=== PATIENT | female | born 1990 | race Hispanic/Latino ===

== ENCOUNTER 2017-03-25 12:01 | Emergency (ER) | payer OTHER ==
[2017-03-25 12:09] VITALS: BMI 28.3
[2017-03-25] MEDS ORDERED: Sodium Chloride 0.9% 1,000 ML IV STA (12:16)
--- NOTE | 2017-03-25 12:21 | ED PDOC ---
Syncope/Near Syncope/Dizziness Time Seen by Provider: 03/25/17 12:10 Chief Complaint (Nursing): Syncope Chief Complaint (Provider): Syncope History Per: Patient History/Exam Limitations: no limitations Onset/Duration Of Symptoms: Mins ([employer]) Additional History Per: EMS Additional Complaint(s): Tessie is a 26 y/o female with no past medical history who was brought to the ED by EMS from an urgent care center after experiencing a syncopal episode. Patient has had fever, congestion, and malaise for the past week, and states that she tested positive for flu A at the urgent care center. She denies vomiting or diarrhea. PMD: None Past Medical History Reviewed: Historical Data, Nursing Documentation, Vital Signs Vital Signs: Last Vital Signs Temp 100.3 F H 03/25/17 12:08 Pulse 88 03/25/17 12:08 Resp BP 120/72 03/25/17 12:08 Pulse Ox 98 03/25/17 12:08 - Medical History PMH: No Chronic Diseases - Family History Family History: States: Unknown Family Hx - Home Medications Home Medications: Ambulatory Orders Medication Instructions Recorded Oseltamivir [Tamiflu] 75 mg PO BID #10 cap 03/25/17 - Allergies Allergies/Adverse Reactions: Allergies Allergy/AdvReac Type Severity Reaction Status Date / Time No Known Allergies Allergy Verified 03/25/17 12:12 Review of Systems ROS Statement: Except As Marked, All Systems Reviewed And Found Negative Constitutional: Positive for: Fever, Malaise, Other (syncope) ENT: Positive for: Nose Congestion Gastrointestinal: Negative for: Vomiting, Diarrhea Physical Exam - Reviewed Nursing Documentation Reviewed: Yes Vital Signs Reviewed: Yes - Physical Exam Appears: Positive for: Non-toxic, No Acute Distress Cardiovascular/Chest: Positive for: Regular Rate, Rhythm. Negative for: Murmur Respiratory: Positive for: Normal Breath Sounds. Negative for: Respiratory Distress Gastrointestinal/Abdominal: Positive for: Normal Exam, Bowel Sounds, Soft. Negative for: Tenderness Extremity: Positive for: Normal ROM. Negative for: Deformity Neurologic/Psych: Positive for: Alert, Oriented. Negative for: Motor/Sensory Deficits - Laboratory Results Result Diagrams: 03/25/17 12:39 03/25/17 12:39 - ECG O2 Sat by Pulse Oximetry: 98 (RA) Pulse Ox Interpretation: Normal Medical Decision Making Medical Decision Making: Time: 12:16 Initial Impression: Flu Initial Plan: --EKG --CMP --Urine Dip --CBC --IV Fluids Scribe Attestation: Documented by Brad Koehler, acting as a scribe for Edu Argueta MD Provider Scribe Attestation: All medical record entries made by the Scribe were at my direction and personally dictated by me. I have reviewed the chart and agree that the record accurately reflects my personal performance of the history, physical exam, medical decision making, and the department course for this patient. I have also personally directed, reviewed, and agree with the discharge instructions and disposition. Disposition - Clinical Impression Clinical Impression: Syncope, Influenza - Patient ED Disposition Is Patient to be Admitted: No Counseled Patient/Family Regarding: Studies Performed, Diagnosis, Need For Followup, Rx Given - Disposition Referrals: [facility] [Outside] Disposition: Routine/Home Disposition Time: 13:20 Condition: FAIR Prescriptions: Oseltamivir [Tamiflu] 75 mg PO BID #10 cap Instructions: Influenza (ED), Syncope (ED) Forms: [employer] ([place])
[2017-03-25 12:53] LABS: BASO % 0.2 % (0.0-2.0); EOS % 0.2 % (0.0-4.0); HEMOGLOBIN 12.7 g/dL (12.0-16.0); LYMPH # 0.6 K/uL (1.0-4.3); LYMPH % 6.4 % (20.0-40.0); MEAN CELL VOLUME 89.7 fl (81.0-99.0); MEAN CORPUSCULAR HGB CONC 33.4 g/dL (33.0-37.0); MEAN PLATELET VOLUME 8.6 fl (7.2-11.7); MONO # 0.7 K/uL (0.0-0.8); MONO % 7.9 % (0.0-10.0); NEUT # 7.5 K/uL (1.8-7.0); NEUT % 85.3 % (50.0-75.0); PLATELET COUNT 243 K/uL (130-400); RBC 4.24 Mil/uL (3.80-5.20); RED CELL DISTRIBUTION WIDTH 11.9 % (11.5-14.5); WHITE BLOOD COUNT 8.8 K/uL (4.8-10.8)
[2017-03-25 13:03] LABS: ALB/GLOB RATIO 1.2 (1.0-2.1); ALBUMIN 3.9 g/dL (3.5-5.0); ALT/SGPT 39 U/L (9-52); AST/SGOT 26 U/L (14-36); BLOOD UREA NITROGEN 8 mg/dl (7-17); CALCIUM 8.7 mg/dL (8.4-10.2); GFR AFRICAN-AMERICAN > 60; GFR NON-AFRICAN AMERICAN > 60
[2017-03-25 13:37] VITALS: BP 115/67
[2017-03-25 14:11] VITALS: PULSE 87; RESP 18; TEMP 98.7; O2SAT 99
[2017-03-25 14:23] LABS: BANDS 5 % (0-2); LYMPHOCYTE 2 % (20-50); MONOCYTE 8 % (0-10); NEUTROPHIL 81 % (42-75); REACTIVE LYMPHOCYTES 4 % (0-0); TOTAL CELLS COUNTED 100
[2017-03-25 14:27] LABS: PLATELET ESTIMATE NORMAL (NORMAL)
[2017-03-25 14:30] LABS: POIKILOCYTOSIS SLIGHT
[2017-03-25 14:33] LABS: HYPOCHROMIC SLIGHT
[2017-03-25 14:35] LABS: HYPERSEGMENTATION PRESENT; STOMATOCYTES SLIGHT; TOXIC GRANULATION PRESENT
--- NOTE | 2017-03-26 10:08 | CARD ---
APPROVED REPORT EKG Measurement Heart [id number] <Conclusion> Normal sinus rhythm Normal ECG
== END 2017-03-25 14:28 | disposition home or self-care (01) ==
LOC: H.ER 12:01
DX: R55 Syncope and collapse (principal); J11.1 Influenza due to unidentified influenza virus with other respiratory manifestations
CPT/HCPCS: 80053; 81025; 85025; 93005; 96360; 96361; 99285; J7040